=== PATIENT | male | born 1980 | race Caucasian/White ===

== ENCOUNTER 2022-09-19 08:24 | Emergency (ER) | payer OTHER ==
[~2022-09-19] VITALS: Ht 175.3 cm; Wt 81.6 kg
--- NOTE | 2022-09-19 08:24 | NUR ---
DIANE ALS TO ER BED 2
[2022-09-19 08:27] VITALS: BP 159/98
--- NOTE | 2022-09-19 08:37 | NUR ---
42/[facility]/O SOB AND CP X 2 DAYS. PT WAS SEEN AT [facility] 2 DAYS AGO FOR SAME S/SX AND WAS DC. PT DENIES RADIATION. ON ROOM AIR. AFEBRILE AT TRIAGE. PMH: HLD, HTN, DEPRESSION, ANXIETY
[2022-09-19] MEDS ORDERED: LORazepam 1 MG TAB PO ONE (10:00)
[2022-09-19] MEDS ORDERED: PRED20TA5 PO ×2 (10:23→10:53)
[2022-09-19 10:32] VITALS: BP 155/89
--- NOTE | 2022-09-19 10:50 | NUR ---
PER ROSSANA, STAFF AT [facility], WILL ASSIST PATIENT BACK TO ROOM ONCE ARRIVED FROM [facility]. PT AWARE AND AGREED TO BE TRANSPORTED VIA [facility]
--- NOTE | 2022-09-19 11:05 | NUR ---
Patient discharged with v/s stable. Written and verbal after care instructions given and explained. Patient alert, oriented and verbalized understanding of instructions. Wheel Chair Assisted with to car. All questions addressed prior to discharge. ID band removed. Patient advised to follow up with PMD. Rx given. Patient educated on indication of medication including possible reaction and side effects. Opportunity to ask questions provided and answered. patient assisted to [facility] by yazmin. Gracy from [facility] called to notify of patient's departure from er. per Gracy, will assist patient once arrived.
== END 2022-09-19 11:05 | disposition home or self-care (01) ==
LOC: MED 08:24
DX: F41.9 Anxiety disorder, unspecified (principal); R06.02 Shortness of breath; R05.9 Cough, unspecified; R07.89 Other chest pain; I10 Essential (primary) hypertension; F17.200 Nicotine dependence, unspecified, uncomplicated; F12.90 Cannabis use, unspecified, uncomplicated; Z88.8 Allergy status to other drugs, medicaments and biological substances; Z79.899 Other long term (current) drug therapy; Z98.890 Other specified postprocedural states
CPT/HCPCS: 71045; 93005; 99283; Q0092